=== PATIENT | male | born 1990 | race Two or more races ===

== ENCOUNTER 2022-09-21 11:31 | Emergency (ER) | payer SELFPAY ==
[2022-09-21 11:49] VITALS: BP 105/64; PULSE 74; RESP 18; TEMP 98.1; BMI 23.8
[2022-09-21] MEDS ORDERED: MAG HYDROX/AL HYDROX/SIMETH 30 ML UNIT-DOSE CUP PO ONE (13:10)
[2022-09-21] MEDS ORDERED: MAG HYDROX/AL HYDROX/SIMETH 30 ML UNIT-DOSE CUP ONE (13:17)
[2022-09-21 13:44] LABS: BASO % 0.9 % (0-2.0); EOS % 4.4 % (0-4.5); HEMATOCRIT 43.4 % (35.4-49); HEMOGLOBIN 14.4 GM/dL (11.7-16.9); LYMPH % 28.4 % (8-40); MCH 27.7 pg (25.7-33.7); MCHC 33.2 g/dl (32.0-35.9); MEAN CELL VOLUME 83.3 fl (80-96); MEAN PLT VOLUME 7.5 fl (7.5-11.1); MONO % 9.4 % (3.8-10.2); NEUT % 56.9 % (42.8-82.8); PLATELET COUNT 305 10^3/uL (134-434); RDW 13.8 % (11.9-15.9); WHITE BLOOD COUNT 7.7 K/mm3 (4.0-10.0)
[2022-09-21 13:59] LABS: ALBUMIN 3.8 g/dl (3.4-5.0); CALCIUM 9.1 mg/dL (8.5-10.1); MAGNESIUM 2.2 mg/dL (1.8-2.4)
[2022-09-21 14:00] LABS: BLOOD UREA NITROGEN 18.7 mg/dL (7-18)
[2022-09-21 14:03] LABS: CREATININE 0.8 mg/dL (0.55-1.3)
[2022-09-21 14:04] LABS: BILIRUBIN,TOTAL 0.4 mg/dL (0.2-1); TOT PROT 7.2 g/dl (6.4-8.2)
== END 2022-09-21 15:49 | disposition home or self-care (01) ==
LOC: JER 11:31
DX: K21.9 Gastro-esophageal reflux disease without esophagitis (principal)
CPT/HCPCS: 36415; 71046-TC-FY; 80053; 83735; 84484; 85025; 93005; 93010; 99285-25